=== PATIENT | male | born 1960 | race Caucasian/White ===

== ENCOUNTER 2019-03-03 23:54 | Inpatient (IN) | payer OTHER, MEDICAID ==
[~2019-03-03] VITALS: Ht 157.5 cm; Wt 71.3 kg
[2019-03-03 23:58] VITALS: BP_SYST 139
[2019-03-04] VITALS (7 sets, daily range): BP systolic 111–163
[2019-03-04] MEDS ORDERED: GABA-529 PO (00:03)
[2019-03-04] MEDS ORDERED: HYDR-4039 PO (00:12)
[2019-03-04] MEDS ORDERED: ASPI-1155 PO (00:12)
[2019-03-04] MEDS ORDERED: NEPH PO (00:12)
[2019-03-04] MEDS ORDERED: CLOP75TA32 PO (00:12)
[2019-03-04] MEDS ORDERED: HYDR-4272 PO (00:12)
[2019-03-04] MEDS ORDERED: CARV25TA55 PO (00:12)
[2019-03-04] MEDS ORDERED: CAT.1 PO (00:12)
[2019-03-04] MEDS ORDERED: SEVE800T8 PO (00:12)
[2019-03-04] MEDS ORDERED: ATOR20TA64 PO (00:12)
[2019-03-04 01:02] LABS: BASOPHILS # (AUTO) 0.1 K/uL (0.0-0.2); EOSINOPHILS # (AUTO) 0.1 K/uL (0.0-0.4); LYMPHOCYTES # (AUTO) 0.9 K/uL (1.0-5.5); MEAN CORPUSCULAR HEMOGLOBIN 29 pg (27-31); MONOCYTES # (AUTO) 0.6 K/uL (0.0-1.0); NEUTROPHILS # (AUTO) 3.7 K/uL (1.8-7.7); WHITE BLOOD COUNT (AUTO) 5.4 K/uL (4.8-10.8)
[2019-03-04 01:07] LABS: BASOPHILS % (AUTO) 1.1 % (0.0-2.0); EOSINOPHILS % (AUTO) 2.2 % (0.0-4.0); MEAN CORPUSCULAR HGB CONC 32 % (32-36); MEAN CORPUSCULAR VOLUME 89 fL (79.0-98.0); MONOCYTES % (AUTO) 10.7 % (1.7-9.3); PLATELET COUNT (AUTO) 176 K/uL (130-430); RED BLOOD CELL COUNT(AUTO) 2.28 MIL/uL (4.2-6.2); RED CELL DISTRIBUTION WIDTH 17.4 % (9.0-15.0)
[2019-03-04 01:09] LABS: HEMATOCRIT 20.4 % (36-54); HEMOGLOBIN 6.5 g/dL (14.0-18.0)
[2019-03-04 01:14] LABS: CALCIUM 8.7 mg/dL (8.4-11.0); CREATININE 5.55 mg/dL (0.55-1.30); POTASSIUM 4.2 mmol/L (3.5-5.1)
[2019-03-04 01:22] LABS: TOTAL BILIRUBIN 0.2 mg/dL (0.0-1.0)
[2019-03-04] MEDS ORDERED: ALBUTEROL SULFATE 0.083% 2.5 MG/3 ML VIAL.NEB INH PRN (08:30)
[2019-03-04] MEDS ORDERED: ONDANSETRON HCL 4 MG/2 ML VIAL IVP PRN (08:30)
[2019-03-04] MEDS: CARVEDILOL 25 MG TABLET (COREG) PO SCH ×2 (09:20→22:06)
[2019-03-04] MEDS: PANTOPRAZOLE SODIUM 40 MG/VIAL (PROTONIX) IVP SCH ×2 (09:21→22:05)
[2019-03-04] MEDS: GABAPENTIN 100 MG CAPSULE PO SCH ×2 (09:21→22:06)
[2019-03-04] MEDS: SEVELAMER HCL 800 MG TABLET PO SCH ×2 (11:27→17:28)
[2019-03-04] MEDS: hydrALAZINE HCL 25 MG TABLET PO SCH ×3 (11:28→23:26)
[2019-03-04] MEDS ORDERED: NEPHROVITE, (FOLIC ACID/VITAMIN B COMP W-C 1 TAB) PO ONE (15:00)
[2019-03-04] MEDS ORDERED: EPOETIN ALFA 10,000 UNITS/ML VIAL SUBCUT ONE (17:00)
[2019-03-04] MEDS: INSULIN LISPRO SLIDING SCALE 100 UNITS/ML VIAL (humaLOG) SUBCUT PRN ×2 (17:31→22:13)
[2019-03-04 18:52] LABS: BASOPHILS # (AUTO) 0.1 K/uL (0.0-0.2); BASOPHILS % (AUTO) 0.9 % (0.0-2.0); EOSINOPHILS # (AUTO) 0.1 K/uL (0.0-0.4); EOSINOPHILS % (AUTO) 1.9 % (0.0-4.0); HEMATOCRIT 29.3 % (36-54); HEMOGLOBIN 9.8 g/dL (14.0-18.0); LYMPHOCYTES # (AUTO) 0.9 K/uL (1.0-5.5); LYMPHOCYTES % (AUTO) 15.5 % (20.5-51.5); MEAN CORPUSCULAR HEMOGLOBIN 30 pg (27-31); MEAN CORPUSCULAR HGB CONC 34 % (32-36); MEAN CORPUSCULAR VOLUME 88 fL (79.0-98.0); MONOCYTES # (AUTO) 0.6 K/uL (0.0-1.0); NEUTROPHILS # (AUTO) 4.3 K/uL (1.8-7.7); NEUTROPHILS % (AUTO) 71.7 % (40.0-70.0); PLATELET COUNT (AUTO) 174 K/uL (130-430); RED BLOOD CELL COUNT(AUTO) 3.32 MIL/uL (4.2-6.2); RED CELL DISTRIBUTION WIDTH 16.1 % (9.0-15.0); WHITE BLOOD COUNT (AUTO) 5.9 K/uL (4.8-10.8)
[2019-03-04] MEDS: ATORVASTATIN 20 MG TABLET PO SCH (22:06)
[2019-03-05 02:32] VITALS: BP_SYST 140
[2019-03-05] MEDS: hydrALAZINE HCL 25 MG TABLET PO SCH ×3 (06:40→17:01)
[2019-03-05] MEDS: INSULIN LISPRO SLIDING SCALE 100 UNITS/ML VIAL (humaLOG) SUBCUT PRN ×3 (06:44→20:24)
[2019-03-05 06:53] LABS: BASOPHILS # (AUTO) 0.1 K/uL (0.0-0.2); BASOPHILS % (AUTO) 1.1 % (0.0-2.0); EOSINOPHILS # (AUTO) 0.2 K/uL (0.0-0.4); EOSINOPHILS % (AUTO) 2.3 % (0.0-4.0); HEMATOCRIT 28.7 % (36-54); HEMOGLOBIN 9.7 g/dL (14.0-18.0); LYMPHOCYTES % (AUTO) 15.5 % (20.5-51.5); MEAN CORPUSCULAR HEMOGLOBIN 30 pg (27-31); MEAN CORPUSCULAR HGB CONC 34 % (32-36); MEAN CORPUSCULAR VOLUME 88 fL (79.0-98.0); MONOCYTES # (AUTO) 0.6 K/uL (0.0-1.0); MONOCYTES % (AUTO) 9.8 % (1.7-9.3); NEUTROPHILS # (AUTO) 4.6 K/uL (1.8-7.7); NEUTROPHILS % (AUTO) 71.3 % (40.0-70.0); PLATELET COUNT (AUTO) 182 K/uL (130-430); RED BLOOD CELL COUNT(AUTO) 3.26 MIL/uL (4.2-6.2); RED CELL DISTRIBUTION WIDTH 16.7 % (9.0-15.0); RETICULOCYTE COUNT 3.3 % (0.5-1.5); WHITE BLOOD COUNT (AUTO) 6.4 K/uL (4.8-10.8)
[2019-03-05 07:17] LABS: ALBUMIN 2.9 g/dL (3.4-4.8); TOTAL BILIRUBIN 0.6 mg/dL (0.0-1.0)
[2019-03-05 07:37] LABS: CALCIUM 8.2 mg/dL (8.4-11.0); POTASSIUM 4.3 mmol/L (3.5-5.1)
[2019-03-05 08:17] VITALS: BP_SYST 143
[2019-03-05 08:18] LABS: TOTAL IRON BIND. CAPACITY 334 ug/dL (250-450)
[2019-03-05] MEDS: SEVELAMER HCL 800 MG TABLET PO SCH ×3 (08:45→17:01)
[2019-03-05] MEDS: GABAPENTIN 100 MG CAPSULE PO SCH ×2 (08:45→20:22)
[2019-03-05] MEDS: NEPHROVITE, (FOLIC ACID/VITAMIN B COMP W-C 1 TAB) PO SCH (08:45)
[2019-03-05] MEDS: PANTOPRAZOLE SODIUM 40 MG/VIAL (PROTONIX) IVP SCH ×2 (08:45→20:21)
[2019-03-05] MEDS: CARVEDILOL 25 MG TABLET (COREG) PO SCH ×2 (08:46→20:21)
[2019-03-05 12:40] VITALS: BP_SYST 154
[2019-03-05 16:45] VITALS: BP_SYST 157
[2019-03-05] MEDS ORDERED: BISACODYL 5 MG TABLET.DR (DULCOLAX) PO ONE (17:00)
[2019-03-05] MEDS ORDERED: GOLYTELY / COLYTE SOLUTION 4 LITERS PO ONE (18:00)
[2019-03-05 20:00] VITALS: BP_SYST 163
[2019-03-05] MEDS: ATORVASTATIN 20 MG TABLET PO SCH (20:21)
[2019-03-05] MEDS ORDERED: MUPIROCIN 1 GM OIN.PF.APP NS SCH (21:00)
[2019-03-06] VITALS: BP_SYST 160
[2019-03-06] MEDS: hydrALAZINE HCL 25 MG TABLET PO SCH ×4 (00:30→17:50)
[2019-03-06] MEDS: INSULIN LISPRO SLIDING SCALE 100 UNITS/ML VIAL (humaLOG) SUBCUT PRN ×3 (06:25→21:31)
[2019-03-06 06:45] LABS: BASOPHILS # (AUTO) 0.1 K/uL (0.0-0.2); BASOPHILS % (AUTO) 0.6 % (0.0-2.0); EOSINOPHILS # (AUTO) 0.1 K/uL (0.0-0.4); EOSINOPHILS % (AUTO) 1.3 % (0.0-4.0); HEMATOCRIT 27.5 % (36-54); HEMOGLOBIN 9.3 g/dL (14.0-18.0); LYMPHOCYTES # (AUTO) 0.8 K/uL (1.0-5.5); LYMPHOCYTES % (AUTO) 9.4 % (20.5-51.5); MEAN CORPUSCULAR HEMOGLOBIN 30 pg (27-31); MEAN CORPUSCULAR HGB CONC 34 % (32-36); MEAN CORPUSCULAR VOLUME 88 fL (79.0-98.0); MONOCYTES # (AUTO) 0.9 K/uL (0.0-1.0); MONOCYTES % (AUTO) 10.1 % (1.7-9.3); NEUTROPHILS # (AUTO) 6.8 K/uL (1.8-7.7); NEUTROPHILS % (AUTO) 78.6 % (40.0-70.0); PLATELET COUNT (AUTO) 172 K/uL (130-430); RED BLOOD CELL COUNT(AUTO) 3.12 MIL/uL (4.2-6.2); RED CELL DISTRIBUTION WIDTH 16.5 % (9.0-15.0); WHITE BLOOD COUNT (AUTO) 8.7 K/uL (4.8-10.8)
[2019-03-06 06:56] LABS: INR 1.1 (0.80-1.20); PROTHROMBIN TIME 11.4 SECS (9.5-12.5)
[2019-03-06 07:00] LABS: POTASSIUM 4.3 mmol/L (3.5-5.1)
[2019-03-06] MEDS ORDERED: SIMETHICONE 40 MG/0.6 ML ML ONE (07:21)
[2019-03-06] MEDS ORDERED: MEPERIDINE HCL/PF 100 MG/ML AMP ONE (07:22)
[2019-03-06 07:37] LABS: CREATININE 9.54 mg/dL (0.55-1.30)
[2019-03-06 07:38] VITALS: BP_SYST 144
[2019-03-06] MEDS: SEVELAMER HCL 800 MG TABLET PO SCH ×3 (08:00→17:51)
[2019-03-06] MEDS: GABAPENTIN 100 MG CAPSULE PO SCH ×2 (09:00→21:02)
[2019-03-06] MEDS: CARVEDILOL 25 MG TABLET (COREG) PO SCH ×2 (09:00→21:02)
[2019-03-06] MEDS: PANTOPRAZOLE SODIUM 40 MG/VIAL (PROTONIX) IVP SCH ×2 (09:00→21:03)
[2019-03-06] MEDS: MUPIROCIN 2% TOPICAL OINTMENT 22 GM NS SCH ×2 (09:00→21:03)
[2019-03-06] MEDS: NEPHROVITE, (FOLIC ACID/VITAMIN B COMP W-C 1 TAB) PO SCH (09:00)
[2019-03-06] MEDS: fentaNYL CITRATE/PF 100 MCG/2 ML AMP ONE ×2 (09:18→09:36)
[2019-03-06] MEDS: MIDAZOLAM HCL 5 MG/5 ML VIAL ONE ×4 (09:18→09:41)
[2019-03-06 12:00] VITALS: BP_SYST 151
[2019-03-06 16:00] VITALS: BP_SYST 155
[2019-03-06 21:01] VITALS: BP_SYST 164
[2019-03-06] MEDS: ATORVASTATIN 20 MG TABLET PO SCH (21:02)
[2019-03-07 00:24] VITALS: BP_SYST 162
[2019-03-07] MEDS: hydrALAZINE HCL 25 MG TABLET PO SCH ×4 (00:28→17:58)
[2019-03-07 01:06] LABS: FOLATE (FOLIC ACID) 10.8 ng/mL (>3.0)
[2019-03-07 05:56] VITALS: BP_SYST 149
[2019-03-07] MEDS: INSULIN LISPRO SLIDING SCALE 100 UNITS/ML VIAL (humaLOG) SUBCUT PRN ×4 (06:04→21:01)
[2019-03-07] MEDS: SEVELAMER HCL 800 MG TABLET PO SCH ×3 (09:10→17:57)
[2019-03-07] MEDS: PANTOPRAZOLE SODIUM 40 MG/VIAL (PROTONIX) IVP SCH ×2 (09:10→20:58)
[2019-03-07] MEDS: NEPHROVITE, (FOLIC ACID/VITAMIN B COMP W-C 1 TAB) PO SCH (09:10)
[2019-03-07] MEDS: MUPIROCIN 2% TOPICAL OINTMENT 22 GM NS SCH ×2 (09:10→21:02)
[2019-03-07] MEDS: GABAPENTIN 100 MG CAPSULE PO SCH ×2 (09:10→20:58)
[2019-03-07] MEDS: EPOETIN ALFA 10,000 UNITS/ML VIAL SUBCUT SCH (09:11)
[2019-03-07] MEDS: CARVEDILOL 25 MG TABLET (COREG) PO SCH ×2 (09:11→21:00)
[2019-03-07] MEDS: ACETAMINOPHEN 325 MG TABLET PO PRN ×2 (12:15→18:08)
[2019-03-07 12:40] VITALS: BP_SYST 152
[2019-03-07] MEDS ORDERED: COMMUNICATION ORDER XX ONE (13:45)
[2019-03-07] MEDS: PIPERACILLIN/TAZO 2.25G/DEX-IS 50 ML IV SCH ×2 (14:32→21:02)
[2019-03-07] MEDS ORDERED: VANCOMYCIN HCL 1,500 MG in NS 250 ML IV ONE (15:00)
[2019-03-07 16:42] VITALS: BP_SYST 146
[2019-03-07 20:00] VITALS: BP_SYST 94
[2019-03-07] MEDS: ATORVASTATIN 20 MG TABLET PO SCH (20:58)
[2019-03-08] VITALS (7 sets, daily range): BP systolic 87–138
[2019-03-08] MEDS: hydrALAZINE HCL 25 MG TABLET PO SCH ×4 (06:11→17:35)
[2019-03-08] MEDS: ACETAMINOPHEN 325 MG TABLET PO PRN (06:12)
[2019-03-08] MEDS: PIPERACILLIN/TAZO 2.25G/DEX-IS 50 ML IV SCH ×3 (06:12→22:18)
[2019-03-08] MEDS: CARVEDILOL 25 MG TABLET (COREG) PO SCH ×2 (09:00→21:18)
[2019-03-08] MEDS: PANTOPRAZOLE SODIUM 40 MG/VIAL (PROTONIX) IVP SCH ×2 (09:36→21:19)
[2019-03-08] MEDS: NEPHROVITE, (FOLIC ACID/VITAMIN B COMP W-C 1 TAB) PO SCH (09:36)
[2019-03-08] MEDS: MUPIROCIN 2% TOPICAL OINTMENT 22 GM NS SCH ×2 (09:36→21:19)
[2019-03-08] MEDS: SEVELAMER HCL 800 MG TABLET PO SCH ×3 (09:36→17:35)
[2019-03-08] MEDS: GABAPENTIN 100 MG CAPSULE PO SCH ×2 (09:36→21:19)
[2019-03-08] MEDS: INSULIN LISPRO SLIDING SCALE 100 UNITS/ML VIAL (humaLOG) SUBCUT PRN ×3 (11:36→21:21)
[2019-03-08] MEDS ORDERED: VANCOMYCIN HCL 1 GM/NS PREMIX 250 ML IV ONE (13:00)
[2019-03-08] MEDS: ATORVASTATIN 20 MG TABLET PO SCH (21:18)
[2019-03-09 00:20] VITALS: BP_SYST 120
[2019-03-09] MEDS: hydrALAZINE HCL 25 MG TABLET PO SCH ×4 (00:24→17:21)
[2019-03-09 06:15] VITALS: BP_SYST 143
[2019-03-09] MEDS: PIPERACILLIN/TAZO 2.25G/DEX-IS 50 ML IV SCH ×3 (06:21→21:25)
[2019-03-09] MEDS: INSULIN LISPRO SLIDING SCALE 100 UNITS/ML VIAL (humaLOG) SUBCUT PRN ×3 (06:34→17:25)
[2019-03-09 07:55] VITALS: BP_SYST 117
[2019-03-09] MEDS: SEVELAMER HCL 800 MG TABLET PO SCH ×3 (09:34→17:17)
[2019-03-09] MEDS: PANTOPRAZOLE SODIUM 40 MG/VIAL (PROTONIX) IVP SCH ×2 (09:34→21:25)
[2019-03-09] MEDS: NEPHROVITE, (FOLIC ACID/VITAMIN B COMP W-C 1 TAB) PO SCH (09:34)
[2019-03-09] MEDS: GABAPENTIN 100 MG CAPSULE PO SCH ×2 (09:34→21:21)
[2019-03-09] MEDS: EPOETIN ALFA 10,000 UNITS/ML VIAL SUBCUT SCH (09:35)
[2019-03-09] MEDS: CARVEDILOL 25 MG TABLET (COREG) PO SCH ×2 (09:38→21:24)
[2019-03-09] MEDS: MUPIROCIN 2% TOPICAL OINTMENT 22 GM NS SCH ×2 (12:28→21:20)
[2019-03-09 12:39] VITALS: BP_SYST 155
[2019-03-09 12:54] LABS: BASOPHILS % (AUTO) 0.7 % (0.0-2.0); EOSINOPHILS # (AUTO) 0.3 K/uL (0.0-0.4); EOSINOPHILS % (AUTO) 5.5 % (0.0-4.0); LYMPHOCYTES # (AUTO) 0.5 K/uL (1.0-5.5); LYMPHOCYTES % (AUTO) 8.8 % (20.5-51.5); MEAN CORPUSCULAR HEMOGLOBIN 30 pg (27-31); MEAN CORPUSCULAR HGB CONC 34 % (32-36); MEAN CORPUSCULAR VOLUME 88 fL (79.0-98.0); MONOCYTES # (AUTO) 0.9 K/uL (0.0-1.0); MONOCYTES % (AUTO) 17.1 % (1.7-9.3); NEUTROPHILS # (AUTO) 3.8 K/uL (1.8-7.7); NEUTROPHILS % (AUTO) 67.9 % (40.0-70.0); PLATELET COUNT (AUTO) 168 K/uL (130-430); RED BLOOD CELL COUNT(AUTO) 3.05 MIL/uL (4.2-6.2); RED CELL DISTRIBUTION WIDTH 16.8 % (9.0-15.0); WHITE BLOOD COUNT (AUTO) 5.6 K/uL (4.8-10.8)
[2019-03-09 12:56] LABS: CALCIUM 8.1 mg/dL (8.4-11.0)
[2019-03-09 13:00] LABS: CREATININE 8.52 mg/dL (0.55-1.30)
[2019-03-09 16:48] VITALS: BP_SYST 134
[2019-03-09 21:00] VITALS: BP_SYST 145
[2019-03-09] MEDS: ATORVASTATIN 20 MG TABLET PO SCH (21:21)
[2019-03-10] VITALS (7 sets, daily range): BP systolic 99–154
[2019-03-10] MEDS: hydrALAZINE HCL 25 MG TABLET PO SCH ×4 (00:22→18:18)
[2019-03-10] MEDS: PIPERACILLIN/TAZO 2.25G/DEX-IS 50 ML IV SCH ×3 (06:24→22:39)
[2019-03-10] MEDS: CARVEDILOL 25 MG TABLET (COREG) PO SCH ×2 (09:00→21:00)
[2019-03-10] MEDS: PANTOPRAZOLE SODIUM 40 MG/VIAL (PROTONIX) IVP SCH ×2 (09:39→21:40)
[2019-03-10] MEDS: GABAPENTIN 100 MG CAPSULE PO SCH ×2 (09:40→21:36)
[2019-03-10] MEDS: NEPHROVITE, (FOLIC ACID/VITAMIN B COMP W-C 1 TAB) PO SCH (09:40)
[2019-03-10] MEDS: SEVELAMER HCL 800 MG TABLET PO SCH ×3 (09:40→18:16)
[2019-03-10] MEDS: MUPIROCIN 2% TOPICAL OINTMENT 22 GM NS SCH ×3 (12:06→21:38)
[2019-03-10] MEDS ORDERED: DIATR MEGLU/DIATRIZ SOD 30 ML SOLUTION PO ONE (12:56)
[2019-03-10] MEDS ORDERED: IOHEXOL 100 ML IV ONE (15:11)
[2019-03-10] MEDS ORDERED: VANCOMYCIN HCL 500 MG in NS 100 ML IV ONE (17:00)
[2019-03-10] MEDS: SOD FERRIC GLUC COMPLEX/SUC 125 MG in NS 100 ML IV SCH (17:19)
[2019-03-10] MEDS: INSULIN LISPRO SLIDING SCALE 100 UNITS/ML VIAL (humaLOG) SUBCUT PRN ×2 (17:29→21:52)
[2019-03-10] MEDS: ATORVASTATIN 20 MG TABLET PO SCH (21:35)
[2019-03-10] MEDS: guaiFENesin/DEXTROMETHORPHAN 118 ML PO PRN (22:06)
[2019-03-11] MEDS: hydrALAZINE HCL 25 MG TABLET PO SCH ×4 (00:22→17:24)
[2019-03-11 01:40] VITALS: BP_SYST 116
[2019-03-11] MEDS: PIPERACILLIN/TAZO 2.25G/DEX-IS 50 ML IV SCH ×3 (06:23→22:00)
[2019-03-11 08:00] VITALS: BP_SYST 113
[2019-03-11] MEDS: SEVELAMER HCL 800 MG TABLET PO SCH ×3 (08:21→17:27)
[2019-03-11] MEDS: PANTOPRAZOLE SODIUM 40 MG/VIAL (PROTONIX) IVP SCH ×2 (08:21→21:00)
[2019-03-11] MEDS: CARVEDILOL 25 MG TABLET (COREG) PO SCH ×2 (08:22→21:00)
[2019-03-11] MEDS: GABAPENTIN 100 MG CAPSULE PO SCH ×2 (08:23→21:00)
[2019-03-11] MEDS: ACETAMINOPHEN 325 MG TABLET PO PRN (08:23)
[2019-03-11] MEDS: NEPHROVITE, (FOLIC ACID/VITAMIN B COMP W-C 1 TAB) PO SCH (08:23)
[2019-03-11] MEDS: guaiFENesin/DEXTROMETHORPHAN 118 ML PO PRN (08:35)
[2019-03-11 11:25] LABS: BASOPHILS % (AUTO) 0.9 % (0.0-2.0); EOSINOPHILS # (AUTO) 0.2 K/uL (0.0-0.4); EOSINOPHILS % (AUTO) 5.8 % (0.0-4.0); HEMATOCRIT 23.4 % (36-54); HEMOGLOBIN 7.8 g/dL (14.0-18.0); LYMPHOCYTES # (AUTO) 0.6 K/uL (1.0-5.5); LYMPHOCYTES % (AUTO) 17.4 % (20.5-51.5); MEAN CORPUSCULAR HEMOGLOBIN 29 pg (27-31); MEAN CORPUSCULAR HGB CONC 33 % (32-36); MEAN CORPUSCULAR VOLUME 88 fL (79.0-98.0); MONOCYTES # (AUTO) 0.6 K/uL (0.0-1.0); MONOCYTES % (AUTO) 17.8 % (1.7-9.3); NEUTROPHILS # (AUTO) 1.9 K/uL (1.8-7.7); NEUTROPHILS % (AUTO) 58.1 % (40.0-70.0); PLATELET COUNT (AUTO) 155 K/uL (130-430); RED BLOOD CELL COUNT(AUTO) 2.65 MIL/uL (4.2-6.2); RED CELL DISTRIBUTION WIDTH 17.7 % (9.0-15.0); WHITE BLOOD COUNT (AUTO) 3.2 K/uL (4.8-10.8)
[2019-03-11 11:38] LABS: CALCIUM 7.9 mg/dL (8.4-11.0); POTASSIUM 3.9 mmol/L (3.5-5.1)
[2019-03-11 11:46] LABS: CREATININE 8.02 mg/dL (0.55-1.30)
[2019-03-11 12:00] VITALS: BP_SYST 188
[2019-03-11] MEDS: HYDROcodone/ACETAMIN 5-325 MG TAB (NORCO/ VICODIN) PO PRN ×2 (13:29→18:12)
[2019-03-11] MEDS: INSULIN LISPRO SLIDING SCALE 100 UNITS/ML VIAL (humaLOG) SUBCUT PRN ×2 (13:31→17:26)
[2019-03-11] MEDS ORDERED: QUEtiapine FUMARATE 25 MG TABLET PO ONE (13:45)
[2019-03-11] MEDS: cloNIDine HCL 0.1 MG TABLET PO PRN (15:02)
[2019-03-11] MEDS ORDERED: EPOETIN ALFA 10,000 UNITS/ML VIAL SUBCUT SCH (17:00)
[2019-03-11] MEDS: SOD FERRIC GLUC COMPLEX/SUC 125 MG in NS 100 ML IV SCH (17:06)
[2019-03-11] MEDS: QUEtiapine FUMARATE 25 MG TABLET PO SCH (21:00)
[2019-03-11] MEDS: ATORVASTATIN 20 MG TABLET PO SCH (21:00)
[2019-03-12] MEDS: INSULIN LISPRO SLIDING SCALE 100 UNITS/ML VIAL (humaLOG) SUBCUT PRN ×3 (00:47→17:28)
[2019-03-12] MEDS: hydrALAZINE HCL 25 MG TABLET PO SCH ×2 (01:03→17:25)
[2019-03-12 06:37] VITALS: BP_SYST 132
[2019-03-12] MEDS: PIPERACILLIN/TAZO 2.25G/DEX-IS 50 ML IV SCH (07:01)
[2019-03-12 08:00] VITALS: BP_SYST 171
[2019-03-12] MEDS: PANTOPRAZOLE SODIUM 40 MG/VIAL (PROTONIX) IVP SCH ×2 (09:31→20:37)
[2019-03-12] MEDS: GABAPENTIN 100 MG CAPSULE PO SCH ×2 (09:34→20:38)
[2019-03-12] MEDS: SEVELAMER HCL 800 MG TABLET PO SCH ×3 (09:34→17:25)
[2019-03-12] MEDS: HYDROcodone/ACETAMIN 5-325 MG TAB (NORCO/ VICODIN) PO PRN ×2 (09:34→17:29)
[2019-03-12] MEDS: NEPHROVITE, (FOLIC ACID/VITAMIN B COMP W-C 1 TAB) PO SCH (09:34)
[2019-03-12] MEDS: QUEtiapine FUMARATE 25 MG TABLET PO SCH ×2 (09:36→20:38)
[2019-03-12] MEDS: CARVEDILOL 25 MG TABLET (COREG) PO SCH ×2 (09:36→20:38)
[2019-03-12] MEDS: cloNIDine HCL 0.1 MG TABLET PO PRN (09:39)
[2019-03-12 10:39] LABS: EOSINOPHILS % (AUTO) 5.8 % (0.0-4.0); HEMOGLOBIN 11.7 g/dL (14.0-18.0); LYMPHOCYTES % (AUTO) 20.3 % (20.5-51.5); MEAN CORPUSCULAR HEMOGLOBIN 29 pg (27-31); MEAN CORPUSCULAR HGB CONC 34 % (32-36); MEAN CORPUSCULAR VOLUME 87 fL (79.0-98.0); MONOCYTES % (AUTO) 18.1 % (1.7-9.3); NEUTROPHILS % (AUTO) 54.8 % (40.0-70.0); PLATELET COUNT (AUTO) 164 K/uL (130-430); RED BLOOD CELL COUNT(AUTO) 4.01 MIL/uL (4.2-6.2); RED CELL DISTRIBUTION WIDTH 16.8 % (9.0-15.0); WHITE BLOOD COUNT (AUTO) 4.8 K/uL (4.8-10.8)
[2019-03-12 10:40] LABS: EOSINOPHILS # (AUTO) 0.3 K/uL (0.0-0.4); MONOCYTES # (AUTO) 0.9 K/uL (0.0-1.0); NEUTROPHILS # (AUTO) 2.6 K/uL (1.8-7.7)
[2019-03-12 12:00] VITALS: BP_SYST 141
[2019-03-12] MEDS: cefTRIAXone 1 GM in D5W 50 ML IV SCH (13:01)
[2019-03-12] MEDS: SOD FERRIC GLUC COMPLEX/SUC 125 MG in NS 100 ML IV SCH (15:48)
[2019-03-12 19:00] VITALS: BP_SYST 158
[2019-03-12 20:00] VITALS: BP_SYST 158
[2019-03-12] MEDS: ATORVASTATIN 20 MG TABLET PO SCH (20:38)
[2019-03-13] VITALS (7 sets, daily range): BP systolic 107–195
[2019-03-13] MEDS: hydrALAZINE HCL 25 MG TABLET PO SCH ×4 (00:52→17:18)
[2019-03-13] MEDS: INSULIN LISPRO SLIDING SCALE 100 UNITS/ML VIAL (humaLOG) SUBCUT PRN ×3 (06:24→17:25)
[2019-03-13] MEDS: SEVELAMER HCL 800 MG TABLET PO SCH ×3 (12:00→17:29)
[2019-03-13] MEDS: PANTOPRAZOLE SODIUM 40 MG/VIAL (PROTONIX) IVP SCH (12:03)
[2019-03-13] MEDS: GABAPENTIN 100 MG CAPSULE PO SCH (12:06)
[2019-03-13] MEDS: NEPHROVITE, (FOLIC ACID/VITAMIN B COMP W-C 1 TAB) PO SCH (12:06)
[2019-03-13] MEDS: QUEtiapine FUMARATE 25 MG TABLET PO SCH (12:07)
[2019-03-13] MEDS: CARVEDILOL 25 MG TABLET (COREG) PO SCH (12:07)
[2019-03-13] MEDS: cefTRIAXone 1 GM in D5W 50 ML IV SCH (12:08)
[2019-03-13] MEDS: SOD FERRIC GLUC COMPLEX/SUC 125 MG in NS 100 ML IV SCH (14:15)
[2019-03-13] MEDS ORDERED: VANCOMYCIN HCL 1,000 MG in NS 250 ML IV ONE (15:00)
[2019-03-13] MEDS ORDERED: DOXY100T2 PO (18:30)
== END 2019-03-13 18:47 | DRG 871 ==
LOC: SED 23:54 → STU 03-04 03:52 → SMU 03-08 13:28
PROVIDERS: ADMIT Internal Medicine Hospice and Palliative Medicine; ATTEND Internal Medicine Hospice and Palliative Medicine
PROC: 30233N1 Transfusion of Nonautologous Red Blood Cells into Peripheral Vein, Percutaneous Approach (ICD-10-PCS; principal; 2019-03-04)
PROC: 5A1D70Z Performance of Urinary Filtration, Intermittent, Less than 6 Hours Per Day (ICD-10-PCS; 2019-03-05)
PROC: 0DB68ZX Excision of Stomach, Via Natural or Artificial Opening Endoscopic, Diagnostic (ICD-10-PCS; 2019-03-06)
PROC: 0DJD8ZZ Inspection of Lower Intestinal Tract, Via Natural or Artificial Opening Endoscopic (ICD-10-PCS; 2019-03-06)
PROC: 0DB98ZX Excision of Duodenum, Via Natural or Artificial Opening Endoscopic, Diagnostic (ICD-10-PCS; 2019-03-06 10:00)
PROC: 5A1D70Z Performance of Urinary Filtration, Intermittent, Less than 6 Hours Per Day (ICD-10-PCS; 2019-03-07)
PROC: 5A1D70Z Performance of Urinary Filtration, Intermittent, Less than 6 Hours Per Day (ICD-10-PCS; 2019-03-09)
PROC: 5A1D70Z Performance of Urinary Filtration, Intermittent, Less than 6 Hours Per Day (ICD-10-PCS; 2019-03-10)
PROC: 5A1D70Z Performance of Urinary Filtration, Intermittent, Less than 6 Hours Per Day (ICD-10-PCS; 2019-03-11)
PROC: 5A1D70Z Performance of Urinary Filtration, Intermittent, Less than 6 Hours Per Day (ICD-10-PCS; 2019-03-13)
DX: A41.9 Sepsis, unspecified organism (principal); N18.6 End stage renal disease; J15.9 Unspecified bacterial pneumonia; K29.71 Gastritis, unspecified, with bleeding; I13.2 Hypertensive heart and chronic kidney disease with heart failure and with stage 5 chronic kidney disease, or end stage renal disease; I42.9 Cardiomyopathy, unspecified; E44.1 Mild protein-calorie malnutrition; I50.42 Chronic combined systolic (congestive) and diastolic (congestive) heart failure; M81.0 Age-related osteoporosis without current pathological fracture; Z99.2 Dependence on renal dialysis; D63.8 Anemia in other chronic diseases classified elsewhere; Y95 Nosocomial condition; E11.42 Type 2 diabetes mellitus with diabetic polyneuropathy; E83.52 Hypercalcemia; E78.5 Hyperlipidemia, unspecified; E11.51 Type 2 diabetes mellitus with diabetic peripheral angiopathy without gangrene; D89.9 Disorder involving the immune mechanism, unspecified; E11.22 Type 2 diabetes mellitus with diabetic chronic kidney disease; I27.20 Pulmonary hypertension, unspecified; J45.909 Unspecified asthma, uncomplicated; K64.8 Other hemorrhoids; Z22.322 Carrier or suspected carrier of Methicillin resistant Staphylococcus aureus; Z83.3 Family history of diabetes mellitus; Z87.891 Personal history of nicotine dependence; Z79.82 Long term (current) use of aspirin; Z79.899 Other long term (current) drug therapy; Z89.431 Acquired absence of right foot; Z90.49 Acquired absence of other specified parts of digestive tract; Z68.28 Body mass index [BMI] 28.0-28.9, adult
CPT/HCPCS: 36415; 43239; 45378; 71045; 71250-TC; 80048; 80053; 80202-TC; 82272; 82607; 82728; 82746; 82962; 83540-TC; 83550-TC; 83735-TC; 84100-TC; 84484; 85025; 85044-TC; 85610-TC; 85730-TC; 86886; 86900; 86901; 86920; 87040-TC; 87081; 88305; 88312; 88313; 90935; 90937; 93005; 94640; 99285; C9113; G0378; J0696; J0885; J2175; J2250; J2543; J2916; J3010; J3370; J7030; J7040; J7050; J7060; J7613; P9021; Q9964; Q9967